=== PATIENT | female | born 1950 | race Caucasian/White ===

== ENCOUNTER 2020-09-05 06:55 | Day surgery (SDC) | payer MEDICARE, OTHER ==
[~2020-09-05] VITALS: Ht 162.6 cm; Wt 84.4 kg
[~2020-09-05 06:55] MED LIST: ADVAIR DISK1 IN; AMBIEN5 MG PO; ASA LOW DOSE81 MG OR; ASPIRIN81 M1 OR; AVELOX400 MG PO; BACLOFEN10 MG PO; BL MAGNESIUM250 MG PO; BUSPIRONE15 MG OR; CALCIUM600 M1 OR; CARDIZEM LA180 MG OR; CIPRO500 MG OR; CRESTOR10 MG OR; HYDROCO/APAP1 TA9 PO; IRON CHEWS OR; LEXAPRO5 MG OR; LORTAB 5 OR; LOTEMAX SM 0.38% OU; LUNESTA2 MG OR; LUNESTA3 MG OR; MAGN SULFATE70 MG OR; MEDDOSEPAK PO; OXYCODONE PO; PREMARIN VAG0.625 MG VA; PROAIR HFA IN; PROMETHAZINE25 MG OR; PROTONIX40 MG OR; PYRIDIUM200 MG OR; REQUIP3 MG OR; VITAMINS & OR; VYTORIN1 TA3 OR
[2020-09-05 08:50] VITALS: BP 151/71
== END 2020-09-05 09:07 | disposition home or self-care (01) ==
LOC: ENDO 06:55 → ORM 08:00 → ENDO 09:07
PROVIDERS: ATTEND Surgery
PROC: 0DBE8ZX Excision of Large Intestine, Via Natural or Artificial Opening Endoscopic, Diagnostic (ICD-10-PCS; principal; 2020-09-05)
PROC: 0DJ08ZZ Inspection of Upper Intestinal Tract, Via Natural or Artificial Opening Endoscopic (ICD-10-PCS; 2020-09-05)
DX: K58.0 Irritable bowel syndrome with diarrhea (principal); K57.30 Diverticulosis of large intestine without perforation or abscess without bleeding; K21.9 Gastro-esophageal reflux disease without esophagitis; K29.70 Gastritis, unspecified, without bleeding; Z86.010 Personal history of colon polyps; Z80.0 Family history of malignant neoplasm of digestive organs; Z98.890 Other specified postprocedural states; Z20.828 Contact with and (suspected) exposure to other viral communicable diseases

== ENCOUNTER 2023-01-05 00:24 | Emergency (ER) | payer MEDICARE ==
[~2023-01-05] VITALS: Ht 162.6 cm; Wt 67.0 kg
[2023-01-05] MEDS ORDERED: PAXLOVID PO (01:24)
[2023-01-05] MEDS ORDERED: AMOX/K CLAV875 M1 PO (01:24)
[2023-01-05 01:28] VITALS: BP 132/62
== END 2023-01-05 01:30 | disposition home or self-care (01) ==
LOC: ED 00:24
DX: U07.1 COVID-19 (principal); H66.91 Otitis media, unspecified, right ear

== ENCOUNTER 2023-08-26 08:52 | Day surgery (SDC) | payer MEDICARE ==
[~2023-08-26] VITALS: Ht 162.6 cm; Wt 81.2 kg
[~2023-08-26 08:52] MED LIST changes: +AMOX/K CLAV875 M1 PO; +CITALOPRAM10 MG/5 M1 PO; +CLARITIN5 MG PO; +EXCEDRIN TENSION HEA PO; +PAXLOVID PO
[2023-08-26 11:01] VITALS: BP 159/85
== END 2023-08-26 11:36 | disposition home or self-care (01) ==
LOC: ORM 08:52
PROVIDERS: ATTEND Internal Medicine Gastroenterology
PROC: 0DBK8ZX Excision of Ascending Colon, Via Natural or Artificial Opening Endoscopic, Diagnostic (ICD-10-PCS; principal; 2023-08-26)
PROC: 0DBE8ZX Excision of Large Intestine, Via Natural or Artificial Opening Endoscopic, Diagnostic (ICD-10-PCS; 2023-08-26)
DX: K58.0 Irritable bowel syndrome with diarrhea (principal); D12.2 Benign neoplasm of ascending colon; K57.30 Diverticulosis of large intestine without perforation or abscess without bleeding; K64.8 Other hemorrhoids; K21.9 Gastro-esophageal reflux disease without esophagitis; I10 Essential (primary) hypertension; E78.5 Hyperlipidemia, unspecified; F41.9 Anxiety disorder, unspecified; Z86.010 Personal history of colon polyps; Z80.0 Family history of malignant neoplasm of digestive organs

== ENCOUNTER 2023-09-16 09:30 | Day surgery (SDC) | payer MEDICARE ==
[~2023-09-16] VITALS: Ht 162.6 cm; Wt 84.4 kg
[~2023-09-16 09:30] MED LIST changes: +CRANBERRY200 MG PO; +MOTRIN200 MG PO; +VITAMIN D-32000 UNI1 PO
[2023-09-16 11:05] VITALS: BP 137/65
== END 2023-09-16 11:27 | disposition home or self-care (01) ==
LOC: ORM 09:30
PROVIDERS: ATTEND Internal Medicine Gastroenterology
PROC: 0DB98ZX Excision of Duodenum, Via Natural or Artificial Opening Endoscopic, Diagnostic (ICD-10-PCS; principal; 2023-09-16)
PROC: 0DB78ZX Excision of Stomach, Pylorus, Via Natural or Artificial Opening Endoscopic, Diagnostic (ICD-10-PCS; 2023-09-16)
PROC: 0DB48ZX Excision of Esophagogastric Junction, Via Natural or Artificial Opening Endoscopic, Diagnostic (ICD-10-PCS; 2023-09-16)
DX: K29.70 Gastritis, unspecified, without bleeding (principal); K92.89 Other specified diseases of the digestive system; K58.0 Irritable bowel syndrome with diarrhea; I10 Essential (primary) hypertension; E78.5 Hyperlipidemia, unspecified; F41.9 Anxiety disorder, unspecified; Z98.890 Other specified postprocedural states

== ENCOUNTER 2024-10-25 08:47 | Emergency (ER) | payer MEDICARE ==
[~2024-10-25] VITALS: Ht 162.6 cm; Wt 88.9 kg
[2024-10-25] VITALS (14 sets, daily range): BP systolic 113–166; BP diastolic 49–90
[2024-10-25] MEDS ORDERED: ALBUTEROL SULFATE 2.5 MG VIAL IN ONE ×2 (09:05→09:10)
[2024-10-25] MEDS ORDERED: methylPREDNISolone SODIUM SUCC 125 MG/2 ML SDV IV ONE (09:05)
[2024-10-25] MEDS ORDERED: IPRATROPIUM-Albuterol 0.5MG-2.5MG/3 ML NEB ONE (09:05)
[2024-10-25 09:42] LABS: URINE BILIRUBIN - DIPSTICK Negative (NEGATIVE); URINE BLOOD DIPSTICK Negative (NEGATIVE); URINE GLUCOSE - DIPSTICK Negative (NEGATIVE); URINE KETONE Negative (NEGATIVE); URINE LEUK ESTERASE Negative (NEGATIVE); URINE NITRITE - DIPSTICK Negative (Negative); URINE PROTEIN - DIPSTICK Negative (NEG-TRACE); URINE UROBILINOGEN - DIPSTICK 0.2 E.U./dL (0.2)
[2024-10-25 09:43] LABS: BASO% 0.4 % (0-3); EOS% 2.3 % (0-8); HEMATOCRIT 40.7 % (37.0-47.0); IMMATURE GRANULOCYTES 0.6 % (0.0-5.0); LYMPH% 21.8 % (15-41); MEAN CELL VOLUME 88.9 fL CALC (80.0-100.0); MEAN CORPUSCULAR HGB 28.4 pG CALC (26.0-32.0); MEAN CORPUSCULAR HGB CONC 31.9 g/dL CAL (32.0-36.0); MONO% 5.4 % (2-13); NEUT# 5.67 thou/uL (2.00-7.15); NEUT% 69.5 % (42-76); RED BLOOD COUNT 4.58 mill/uL (4.20-5.60); RED CELL DISTRI WIDTH 13.3 % (11.5-15.5)
[2024-10-25 09:44] LABS: URINE COLOR Yellow
[2024-10-25] MEDS ORDERED: CELEXA10 MG PO (09:55)
[2024-10-25 10:00] LABS: ALBUMIN 4.1 g/dL (3.2-5.0); ALKALINE PHOSPHATASE 111 u/l (38-126); ANION GAP 10 (6-22 (CALC)); BUN 18 mg/dL (8-23); BUN/CREATININE RATIO 31 (12-20 (CALC)); CARBON DIOXIDE 27 mmol/l (22-30); CHLORIDE 106 mmol/l (95-108); CREATININE 0.6 mg/dL (0.5-1.0); ESTIMATED GFR 95 ML/MIN (>=90 (CALC)); POTASSIUM 4.4 mmol/l (3.5-5.1); SGOT/AST 30 u/l (9-36); SODIUM 138 mmol/l (137-146); TOTAL PROTEIN 7.1 g/dL (6.3-8.2)
[2024-10-25 10:09] LABS: BILIRUBIN, TOTAL 0.5 mg/dL (0.02-1.3)
== END 2024-10-25 12:15 | disposition home or self-care (01) ==
LOC: ED 08:47
PROVIDERS: Family Medicine
DX: J44.1 Chronic obstructive pulmonary disease with (acute) exacerbation (principal); Z20.822 Contact with and (suspected) exposure to COVID-19